=== PATIENT | female | born 1975 | race Caucasian/White ===

== ENCOUNTER 2016-06-29 14:25 | Outpatient (CLI) ==
[2014-09-14 21:39] VITALS: BMI 36.6
--- NOTE | 2016-06-29 15:00 | DI ---
EXAM: Right elbow three view HISTORY: Elbow pain COMPARISON: None FINDINGS: The bones are normal. The alignment is normal. No joint effusion. No focal soft tissue ab normality. IMPRESSION: Normal examination.
== END 2016-06-29 14:26 | disposition home or self-care (01) ==
LOC: RAD 14:25
PROVIDERS: ATTEND Physician Assistant
DX: M25.521 Pain in right elbow (principal)

== ENCOUNTER 2016-09-07 10:29 | Outpatient (CLI) ==
[2014-09-14 21:39] VITALS: BMI 36.6
[2016-09-07 11:00] LABS: BASOPHILS # (AUTO) 0.1 K/uL (0-0.2); BASOPHILS % (AUTO) 0.6 % (0.0-3.0); EOSINOPHILS # (AUTO) 0.2 K/ul (0.0-0.7); HEMATOCRIT 38.5 % (37.0-47.0); HEMOGLOBIN 13.3 g/dl (12.0-16.0); IMMATURE GRANULOCYTE % (AUTO) 0.3 % (0.0-5.0); LYMPHOCYTES # (AUTO) 2.9 K/uL (0.60-3.4); LYMPHOCYTES % (AUTO) 36.7 (10.0-50.0); MEAN CORPUSCULAR HEMOGLOBIN 30.9 pg (27.0-31.0); MEAN CORPUSCULAR HGB CONC 34.5 (31.8-35.4); MEAN CORPUSCULAR VOLUME 89.5 fl (81.0-99.0); MONOCYTES # (AUTO) 0.5 K/uL (0.4-2.0); MONOCYTES % (AUTO) 5.7 (0-10); NEUTROPHILS # (AUTO) 4.3 K/ul (2.0-6.9); NEUTROPHILS % (AUTO) 54.7; PLATELET COUNT 346 10^3/uL (140-440); WHITE BLOOD COUNT 7.91 K/ul (4.6-10.2)
[2016-09-07 11:26] LABS: ALANINE AMINOTRANSFERASE 22 U/L (12-78); ALBUMIN 3.5 g/dL (3.4-5.0); ALBUMIN/GLOBULIN RATIO 0.97; ALKALINE PHOSPHATASE 75 U/L (42-98); ANION GAP 14.4; ASPARTATE AMINO TRANSFERASE 19 U/L (15-37); BILIRUBIN,TOTAL 0.25 mg/dL (0.00-1.20); BLOOD UREA NITROGEN 14 mg/dL (7-18); CALCIUM 9.3 mg/dL (8.2-10.2); CARBON DIOXIDE 25 mmol/L (21-32); CHLORIDE 103 mmol/L (98-107); CHOL/HDL RATIO 3.5 (4.5-5.5); CHOLESTEROL 187 mg/dL (0-200); GLUCOSE 124 mg/dL (70-110); HDL CHOLESTEROL 53 mg/dL (35-80); POTASSIUM 4.4 mmol/L (3.5-5.10); SODIUM 138 mmol/L (136-145); TOTAL PROTEIN 7.1 g/dL (6.4-8.2); TRIGLYCERIDES 104 mg/dL (30-150); VLDL CHOLESTEROL 21 mg/dL (2-30)
== END 2016-09-07 10:30 | disposition home or self-care (01) ==
LOC: LAB 10:29
PROVIDERS: ATTEND Physician Assistant
DX: E11.9 Type 2 diabetes mellitus without complications (principal); R06.02 Shortness of breath; R07.89 Other chest pain
CPT/HCPCS: 36415; 80053; 80061; 82043; 83036; 84484; 85025

== ENCOUNTER 2016-09-10 06:35 | Outpatient (CLI) ==
[2014-09-14 21:39] VITALS: BMI 36.6
--- NOTE | 2016-09-10 12:42 | ECHO2D ---
Date of Exam: 09/10/16 Ordering Physician: Micaela ORTEGA [facility] Reason for Echo: SOB, CHEST TIGHTNESS, PRESSURE M-Mode Normal Adult Results LV Dimensions Normal Adult Results AoV Opening excursions >1.6 >1.6 LVEDD-base- 3.5-5.8 4.1 Ao root dimensions 2.0-3.7 2.6 LVESD-base- 3.1-4.6 L. Atrium dimensions 1.9-3.8 3.6 Post. Wall thickness 0.8-1.1 1.1 IV septum (thickness) 0.7-1.2 1.1 Post. Wall excursion 0.72-1.3 NORMAL Septal motion NORMAL Systolic motion R. Ventricular cavity 1.5-2.0 NORMAL LVEF 60% 54% Paradoxical septal wall motion NORMAL 2-D : 2-D M Mode Echocardiogram was performed using apical four chamber and left parasternal long and short axis views. Mitral, tricuspid and aortic valves appear to be normal. Contractility of the left ventricle seems to be normal, so is the cavity size. Left atrial cavity size and aortic root appear to be normal. There is no pericardial effusion. There is no thrombus noted in the left ventricular or left aortic cavity. No mitral valve prolapse noted. M-MODE: MV: NORMAL AV: NORMAL TV: NORMAL PV: CHAMBER SIZE: NORMAL WALL MOTION: NORMAL PERICARDIUM: NORMAL INTERPRETATION: 1. NORMAL 2 "D" "M" MODE ECHO MTDD
== END 2016-09-10 06:36 | disposition home or self-care (01) ==
LOC: CAR 06:35
PROVIDERS: ATTEND Physician Assistant
DX: R07.89 Other chest pain (principal)

== ENCOUNTER 2016-09-13 06:32 | Outpatient (CLI) ==
[2014-09-14 21:39] VITALS: BMI 36.6
--- NOTE | 2016-09-13 14:02 | ECHOSTRESS ---
Date of Exam: 09/13/2016 Ordering Physician: DR. ORTEGA Reason for Echo: SHORTNESS OF BREATH, CHEST PRESSURE, CHEST TIGHTNESS, DIABETES MELLITUS, STRESS TEST= NO ISCHEMIA M-Mode Normal Adult Results LV Dimensions Normal Adult Results AoV Opening excursions >1.6 LVEDD-base- 3.5-5.8 Ao root dimensions 2.0-3.7 LVESD-base- 3.1-4.6 L. Atrium dimensions 1.9-3.8 Post. Wall thickness 0.8-1.1 IV septum (thickness) 0.7-1.2 Post. Wall excursion 0.72-1.3 Septal motion Systolic motion R. Ventricular cavity 1.5-2.0 LVEF 60% Paradoxical septal wall motion 2-D: NORMAL LEFT VENTRICULAR CONTRACTILITY RESTING AND POST EXERCISE M-MODE: MV: AV: TV: PV: CHAMBER SIZE: WALL MOTION: NORMAL LEFT VENTRICULAR CONTRACTILITY RESTING AND POST EXERCISE PERICARDIUM: INTERPRETATION: 1. NORMAL LEFT VENTRICULAR CONTRACTILITY RESTING AND POST EXERCISE MTDD
--- NOTE | 2016-09-13 14:20 | STRESSECHO ---
Date of Test: 09/13/2016 Reason for Exam: SHORTNESS OF BREATH, CHEST TIGHTNESS, CHEST PRESSURE, DIABETES MELLITUS Ordering Physician: DR. ORTGEA Current Medications: METFORMIN, PROZAC, VITAMIN D, DICLOFENAC SOD ER, PRO AIR Physical Findings: S1,S2, NO S3, NO MURMUR Resting EKG: SINUS RHYTHM NO ACUTE CHANGES Target Heart Rate: 151 / 178 STAGE MPH/GRADE HEART RATE BPM BLOOD PRESSURE mmhg RHYTHM S-T SEGMENT +/- UP DOWN SYMPTOMS,COMMENTS At Rest 80 128/82 SR X NONE 1 1.7/10% 132 138/80 SR X NONE 2 2.5/12% 146/70 SR X NONE 3 3.4/14% 4 4.2/16% 5 5.0/18% Immediately after 156 SR X SHORTNESS OF BREATH Durations of Exercise: 6 MINUTES AND 22 SECONDS Maximum Heart Rate Reached: 156 Reason for Termination: SHORTNESS OF BREATH Minutes Post Exercise: 3 HeartRate: 96 Blood Pressure: 140/80 INTERPRETATION: 1. NO ISCHEMIA BY ST- T WAVE 2. NO COMPLAINTS OF CHEST PAIN OR DISCOMFORT 3. NO ARRHYTHMIAS 4. BLOOD PRESSURE RESPONSE NORMAL 5. NORMAL LEFT VENTRICULAR CONTRACTILITY RESTING AND POST EXERCISE MTDD
== END 2016-09-13 06:33 | disposition home or self-care (01) ==
LOC: CAR 06:32
PROVIDERS: ATTEND Physician Assistant
DX: R07.89 Other chest pain (principal)

== ENCOUNTER 2017-03-16 18:03 | Emergency (ER) ==
[2017-03-16 18:09] VITALS: BP 138/83; TEMP 98.7; BMI 35.4
[2017-03-16] MEDS ORDERED: DILAUDID 2 MG/ML SYRINGE IM STA (18:18)
[2017-03-16] MEDS ORDERED: PHENERGAN 25 MG/ML VIAL IM STA (18:18)
[2017-03-16] MEDS ORDERED: TORADOL IM STA (18:18)
[2017-03-16 18:36] LABS: BASOPHILS # (AUTO) 0.1 K/uL (0-0.2); BASOPHILS % (AUTO) 0.5 % (0.0-3.0); EOSINOPHILS # (AUTO) 0.2 K/ul (0.0-0.7); EOSINOPHILS % (AUTO) 1.6 % (0.0-7.0); HEMATOCRIT 36.7 % (37.0-47.0); HEMOGLOBIN 12.9 g/dl (12.0-16.0); IMMATURE GRANULOCYTE % (AUTO) 0.2 % (0.0-5.0); LYMPHOCYTES # (AUTO) 3.1 K/uL (0.60-3.4); LYMPHOCYTES % (AUTO) 30.4 (10.0-50.0); MEAN CORPUSCULAR HEMOGLOBIN 31.2 pg (27.0-31.0); MEAN CORPUSCULAR HGB CONC 35.1 (31.8-35.4); MEAN CORPUSCULAR VOLUME 88.6 fl (81.0-99.0); MONOCYTES # (AUTO) 0.6 K/uL (0.4-2.0); MONOCYTES % (AUTO) 5.6 (0-10); NEUTROPHILS # (AUTO) 6.3 K/ul (2.0-6.9); NEUTROPHILS % (AUTO) 61.7; PLATELET COUNT 322 10^3/uL (140-440); RED BLOOD COUNT 4.14 10^6/ul (4.20-5.40); WHITE BLOOD COUNT 10.14 K/ul (4.6-10.2)
[2017-03-16 18:40] LABS: BILIRUBIN,URINE Negative (NEGATIVE); KETONES,URINE 1+ (NEGATIVE); LEUKOCYTE ESTERASE ,URINE Trace (NEGATIVE); NITRITE,URINE Negative (NEGATIVE); PH,URINE 5.5 (5-9); PROTEIN,URINE Negative (NEGATIVE); URINE, BLOOD Negative (NEGATIVE)
[2017-03-16 18:42] LABS: ADD URINE MICROSCOPIC YES
[2017-03-16 18:43] LABS: BACTERIA,URINE TRACE (NOT PRESENT)
--- NOTE | 2017-03-16 18:54 | CT ---
EXAM: CT head without contrast. HISTORY: Headache. History of migraines. PROCEDURE: Contiguous axial CT images of the head without contrast with coronal and sagittal reforma ts. FINDINGS: The ventricles and basal cisterns are normal in size and configuration. No evidence of m ass or midline shift. No intracranial hemorrhage or evidence of large vessel infarct. No extra-axia l fluid collection. There is minimal mucosal thickening in the paranasal sinuses. The mastoid air c ells are well-aerated. Impression: Negative CT of the head. Paranasal sinusitis.
[2017-03-16 18:55] LABS: ALBUMIN 3.4 g/dL (3.4-5.0); ALBUMIN/GLOBULIN RATIO 0.97; ANION GAP 14.9; BILIRUBIN,TOTAL 0.47 mg/dL (0.00-1.20); BUN/CREATININE RATIO 18.57; CALCIUM 9.2 mg/dL (8.2-10.2); CREATININE 0.7 mg/dL (0.60-1.30); POTASSIUM 3.9 mmol/L (3.5-5.10); TOTAL PROTEIN 6.9 g/dL (6.4-8.2)
--- NOTE | 2017-03-16 18:58 | ED.PDOC ---
General ED Provider: Dr. MARIANELA FITCH-ER Chief Complaint: Headache Stated Complaint: my head has been hurting for 4 days Time Seen by Physician: 18:05 Mode of Arrival: Walk-In Information Source: Patient Exam Limitations: No limitations Primary Care Provider: CHAUNCEY ORTEGA Nursing and Triage Documentation Reviewed and Agree: Yes Neurological Complaint Exam - Headache Complaint/Exam Onset: Gradual Duration: 4 days Symptoms Are: Still present Timing: Constant Worst Headache Ever: No Initial Severity: Mild Current Severity: Moderate Location: Diffuse Character: Reports: Dull, Throbbing, Pressure, Typical headache, Migraine Aggravating: Reports: Bright lights Associated Signs and Symptoms: Reports: Nausea. Denies: Dizziness, Seizure, Vomiting, Sinus pressure, Fever, Neck pain, Neck stiffness, Decreased LOC, Visual changes Related History: Reports: Similar episode Related Surgical History: Reports: None SAH Risk Factors: Reports: None Meningitis Risk Factors: Reports: None SDH Risk Factors: Reports: None Temporal Arteritis Risk Factors: Reports: Female, Normal Head CT Within Last 12 Months: No Fundoscopic Exam: Present: Normal Findings Papilledema Present: Yes Temporal Artery Tenderness: Present: None Sinus Tenderness: Present: None TMJ Tenderness: Present: None Glascow Coma Scale (see protocol): 15 Meningeal Signs Positive: No Pain on Passive Flexion-Positive Kernig's: No ROM Limited In: No Limitiations Focal Weakness: Present: None Focal Sensory Loss: Present: None Gait: Normal Nystagmus Present: No Gag Reflex Present: No [id number]: Normal Findings Romberg Test Positive: No Babinski Sign: Negative Right, Negative Left Heel to Toe Normal: Yes Differential Diagnoses: Migraine Review of Systems - Review Of Systems Constitutional: Reports: Chills, Weakness Eyes: Reports: No symptoms Ears, Nose, Mouth, Throat: Reports: No symptoms Respiratory: Reports: No symptoms Cardiac: Reports: No symptoms GI: Reports: Nausea : Reports: No symptoms Musculoskeletal: Reports: No symptoms Skin: Reports: No symptoms Neurological: Reports: Headache Endocrine: Reports: No symptoms Hematologic/Lymphatic: Reports: No symptoms, Swollen glands All Other Systems: Reviewed and Negative Past Medical History - Past Medical History Previously Healthy: Yes Endocrine: Reports: Unknown Cardiovascular: Reports: Unknown Respiratory: Reports: Unknown Hematological: Reports: Unknown Gastrointestinal: Reports: Unknown Genitourinary: Reports: Unknown Neuro/Psych: Reports: Unknown Musculoskeletal: Reports: Unknown Cancer: Reports: Unknown Last Menstrual Period: hysterectomy - Surgical History General Surgical History: Reports: Unknown - Family History Family History: Reports: Unknown - Social History Smoking Status: Former smoker Hx Substance Use: No Alcohol Screening: None Lives: With family Physical Exam - Physical Exam Appearance: Well-appearing, No pain distress, Well-nourished Pain Distress: Moderate Eyes: JOHAN ENT: Ears normal, Nose normal, Oropharynx normal Neck: Supple Respiratory: Airway patent, Breath sounds clear, Breath sounds equal, Respirations nonlabored Cardiovascular: RRR, Pulses normal, No rub, No murmur GI/: Soft, Nontender, No masses, Bowel sounds normal, No Organomegaly Musculoskeletal: Normal strength, ROM intact, No edema, No calf tenderness Skin: Warm Neurological: Sensation intact, Motor intact, Reflexes intact, Cranial nerves intact, Alert, Oriented Psychiatric: Affect appropriate, Mood appropriate Interpretation - Radiology Interpretation Radiology Interpretation By: Radiologist Radiology Results: Negative Exam Interpreted: CT Scan Re-Evaluation - Re-Evaluation Time of Re-Evaluation: 19:16 Status: Improved Vital Signs Stable: Yes Pain Level: 1 Appearance: NAD Lungs: Clear Skin: Warm and Dry Neuro: Alert and Oriented X3 CV: RRR Critical Care Note - Critical Care Note Total Time (mins): 0 Course - Course Hematology/Chemistry: 03/16/17 18:30 03/16/17 18:30 Orders, Labs, Meds: Lab Review 03/16/17 03/16/17 03/16/17 18:20 18:30 18:30 WBC 10.14 RBC 4.14 L Hgb 12.9 Hct 36.7 L MCV 88.6 MCH 31.2 H MCHC 35.1 RDW Coeff of Valentin 13.0 Plt Count 322 Immature Gran % (Auto) 0.2 Neut % (Auto) 61.7 Lymph % (Auto) 30.4 Calhoun % (Auto) 5.6 Eos % (Auto) 1.6 Baso % (Auto) 0.5 Immature Gran # (Auto) 0.0 Neut # 6.3 Lymph # 3.1 Calhoun # 0.6 Eos # 0.2 Baso # 0.1 Sodium 138 Potassium 3.9 Chloride 105 Carbon Dioxide 22 Anion Gap 14.9 BUN 13 Creatinine 0.70 Estimated GFR (MDRD) 91.00 BUN/Creatinine Ratio 18.57 Glucose 104 Lactic Acid Calcium 9.2 Total Bilirubin 0.47 AST 13 L ALT 18 Alkaline Phosphatase 64 Total Protein 6.9 Albumin 3.4 Globulin 3.5 Albumin/Globulin Ratio 0.97 Procalcitonin Urine Color Yellow Urine Clarity Clear Urine pH 5.5 Ur Specific Center >=1.030 Urine Protein Negative Urine Glucose (UA) Negative Urine Ketones 1+ Urine Blood Negative Urine Nitrite Negative Urine Bilirubin Negative Urine Urobilinogen 0.2 Ur Leukocyte Esterase Trace Urine Microscopic WBC 2-5 Ur Squamous Epith Cells 10-20 Urine Bacteria Trace Influenza A (Rapid) Influenza B (Rapid) 03/16/17 03/16/17 03/16/17 18:30 18:30 18:50 WBC RBC Hgb Hct MCV MCH MCHC RDW Coeff of Valentin Plt Count Immature Gran % (Auto) Neut % (Auto) Lymph % (Auto) Calhoun % (Auto) Eos % (Auto) Baso % (Auto) Immature Gran # (Auto) Neut # Lymph # Calhoun # Eos # Baso # Sodium Potassium Chloride Carbon Dioxide Anion Gap BUN Creatinine Estimated GFR (MDRD) BUN/Creatinine Ratio Glucose Lactic Acid 8.8 Calcium Total Bilirubin AST ALT Alkaline Phosphatase Total Protein Albumin Globulin Albumin/Globulin Ratio Procalcitonin < 0.05 Urine Color Urine Clarity Urine pH Ur Specific Center Urine Protein Urine Glucose (UA) Urine Ketones Urine Blood Urine Nitrite Urine Bilirubin Urine Urobilinogen Ur Leukocyte Esterase Urine Microscopic WBC Ur Squamous Epith Cells Urine Bacteria Influenza A (Rapid) Negative Influenza B (Rapid) Negative Orders Category Date Time Status BLOOD CULTURE Stat LAB 03/16/17 18:30 Received CBC W/ AUTO DIFF Stat LAB 03/16/17 18:30 Completed COMPREHENSIVE METABOLIC PANEL Stat LAB 03/16/17 18:30 Completed LACTIC ACID Stat LAB 03/16/17 18:30 Completed MOLECULAR GROUP A STREP Stat LAB 03/16/17 18:50 Results PROCALCITONIN Stat LAB 03/16/17 18:30 Completed RAPID FLU A/B Stat LAB 03/16/17 18:50 Completed STREP SCREEN Stat LAB 03/16/17 18:50 Results URINALYSIS C & S IF INDICATED Stat LAB 03/16/17 18:20 Completed Hydromorphone HCl/Pf [Dilaudid 2 mg/ml Syringe] MEDS 03/16/17 18:18 Discontinued 2 mg IM ONCE STA Ketorolac Tromethamine [Toradol] MEDS 03/16/17 18:18 Discontinued 60 mg IM ONCE STA Promethazine HCl [Phenergan 25 mg/ml Vial] MEDS 03/16/17 18:18 Discontinued 25 mg IM ONCE STA CT HEAD W/O CONTRAST Stat RADS 03/16/17 18:20 Completed Medications Discontinued Medications Generic Name Dose Route Start Last Admin Trade Name Timur PRN Reason Stop Dose Admin Hydromorphone HCl 2 mg 03/16/17 18:18 03/16/17 18:48 Dilaudid 2 Mg/Ml Syringe IM 03/16/17 18:19 2 mg ONCE STA Administration Ketorolac Tromethamine 60 mg 03/16/17 18:18 03/16/17 18:51 Toradol IM 03/16/17 18:19 60 mg ONCE STA Administration Promethazine HCl 25 mg 03/16/17 18:18 03/16/17 18:48 Phenergan 25 Mg/Ml Vial IM 03/16/17 18:19 25 mg ONCE STA Administration Vital Signs: Temp Pulse Resp BP Pulse Ox 03/16/17 18:03 98.7 F 100 H 20 138/83 96 Departure - Departure Time of Disposition: 19:16 Disposition: HOME SELF-CARE Discharge Problem: Migraine headache Qualifiers: Migraine type: without aura Status migrainosus presence: without status migrainosus Intractability: not intractable Qualified Code(s): G43.009 - Migraine without aura, not intractable, without status migrainosus Rhinitis Qualifiers: Rhinitis type: unspecified Chronicity: acute Qualified Code(s): J00 - Acute nasopharyngitis [common cold] Instructions: Migraine Headache (ED) Condition: Good Pt referred to PMD for follow-up: Yes Additional Instructions: augmentin 875mg bid x 10 days--flonase nasal srpay one puff each nostril bid--f/ u with pcp Allergies/Adverse Reactions: Allergies doxycycline Adverse Reaction (Verified 03/16/17 18:10) metronidazole [From Flagyl] Adverse Reaction (Verified 03/16/17 18:10) Metronidazole HCl [From Flagyl] Adverse Reaction (Verified 03/16/17 18:10) varenicline tartrate [From Chantix] Adverse Reaction (Verified 03/16/17 18:10) Home Medications: Ambulatory Orders Metformin HCl [Glucophage] 500 mg PO TID 11/10/13 Diclofenac Sodium [Voltaren-Xr] 100 mg PO BEDTIME 03/16/17 Fluoxetine HCl [Prozac] 60 mg PO BEDTIME 03/16/17 Disposition Discussed With: Patient, Family
[2017-03-16 19:12] LABS: FLU INTERNAL QC INTERNAL QC VALID; RAPID FLU A NEGATIVE (NEGATIVE); RAPID FLU B NEGATIVE (NEGATIVE)
== END 2017-03-16 19:30 | disposition home or self-care (01) ==
LOC: ED 18:03
DX: G43.009 Migraine without aura, not intractable, without status migrainosus (principal); J00 Acute nasopharyngitis [common cold]
CPT/HCPCS: 36415; 80053; 81001; 83605; 84145; 85025; 87040; 87070; 87186; 87651; 87804; 87880; 96372; 99283

== ENCOUNTER 2017-10-07 19:50 | Emergency (ER) ==
[2017-10-07 19:54] VITALS: BP 127/87; TEMP 98.5; BMI 37.6
[2017-10-07] MEDS ORDERED: GI COCKTAIL PO STA (20:45)
[2017-10-07] MEDS ORDERED: ZOFRAN 4 MG/2 ML IM STA (20:45)
[2017-10-07] MEDS ORDERED: DEMEROL 25 MG/ML VIAL IM STA (20:45)
--- NOTE | 2017-10-07 20:49 | ED.PDOC ---
General ED Provider: Dr. WAYNE ELIZABETH Chief Complaint: Abdominal Pain Stated Complaint: Hurting in the upper abdomen, for 2-3 days, vomiting, nausea. no fever or chills. Time Seen by Physician: 20:47 Mode of Arrival: Walk-In Information Source: Patient Primary Care Provider: CHAUNCEY ORTEGA Nursing and Triage Documentation Reviewed and Agree: Yes Reviewed sepsis parameters & appropriate labs ordered?: No System Inflammatory Response Syndrome: Not Applicable Sepsis Protocol: For patient's 13 years and over: Temp is 96.8 and below OR 101 and greater Pulse >90 BPM Resp >20/minute Acutely Altered Mental Status Are patient's symptoms suggestive of a new infection, such as: -Pneumonia -Skin, Soft Tissue -Endocarditis -UTI -Bone, Joint Infection -Implantable Device -Acute Abdominal Infection -Wound Infection -Meningitis -Blood Stream Catheter Infection -Unknown GI Complaint Exam - Abdominal Pain Complaint/Exam Onset: Gradual Symptoms Are: Still present Timing: Constant Initial Severity: Moderate Current Severity: Severe Location of Pain: Epigastric Radiates To: Reports: Back, Flank Character: Reports: Dull, Aching, Throbbing Aggravating: Reports: None Alleviating: Reports: None Associated Signs and Symptoms: Reports: Nausea, Vomiting. Denies: Diaphoresis, Fever, Cough, Chest pain, Dizziness, Back pain, Constipation, Blood in stool, Dysuria, Urinary frequency, Decreased urine output, Decreased appetite, Vaginal bleeding, Vaginal discharge, Diarrhea, Sore throat, Decreased activity AAA Risk Factors: Reports: None Cardiac Risk Factors: Reports: None Ectopic Risk Factors: Reports: None Ovarian Torsion Risk Factors: Reports: None Surgical Obstruction Risk Factors: Reports: None Related Surgical History: Reports: None Patient Rh Status: Unknown Abdominal Findings: Present: None Differential Diagnoses: Gastroenteritis, Pancreatitis, PUD Review of Systems - Review Of Systems Constitutional: Reports: Malaise, Weakness Eyes: Reports: No symptoms Ears, Nose, Mouth, Throat: Reports: No symptoms Respiratory: Reports: No symptoms Cardiac: Reports: No symptoms GI: Reports: Abdominal pain, Nausea, Vomiting : Reports: No symptoms Musculoskeletal: Reports: No symptoms Skin: Reports: No symptoms Neurological: Reports: No symptoms Endocrine: Reports: No symptoms Hematologic/Lymphatic: Reports: No symptoms All Other Systems: Reviewed and Negative Past Medical History - Past Medical History Previously Healthy: Yes Endocrine: Reports: DM 2 Cardiovascular: Reports: Unknown Respiratory: Reports: Unknown Hematological: Reports: Unknown Gastrointestinal: Reports: Unknown Genitourinary: Reports: Unknown Neuro/Psych: Reports: Depression Musculoskeletal: Reports: Unknown Cancer: Reports: Unknown Last Menstrual Period: n/a - Surgical History General Surgical History: Reports: Appendectomy, Cholecystectomy, Tonsillectomy - Family History Family History: Reports: Unknown - Social History Smoking Status: Former smoker Hx Substance Use: No Alcohol Screening: None Physical Exam - Physical Exam Appearance: Ill-appearing, Well-nourished Pain Distress: Moderate Eyes: JOHAN, EOMI, Conjunctiva clear ENT: Ears normal, Nose normal, Oropharynx normal Respiratory: Airway patent, Breath sounds clear, Breath sounds equal, Respirations nonlabored Cardiovascular: RRR, Pulses normal, No rub, No murmur GI/: Soft, No masses, Bowel sounds normal, No Organomegaly, Tender Musculoskeletal: Normal strength, ROM intact, No edema, No calf tenderness Skin: Warm, Dry, Normal color Neurological: Sensation intact, Motor intact, Reflexes intact, Cranial nerves intact, Alert, Oriented Psychiatric: Affect appropriate, Mood appropriate Interpretation - Radiology Interpretation Radiology Interpretation By: Radiologist Radiology Results: Negative Exam Interpreted: CT Scan Critical Care Note - Critical Care Note Total Time (mins): 30 Course - Course Hematology/Chemistry: 10/07/17 21:00 10/07/17 21:00 Orders, Labs, Meds: Lab Review 10/07/17 10/07/17 21:00 21:00 WBC 11.89 H RBC 4.14 L Hgb 12.8 Hct 37.5 MCV 90.6 MCH 30.9 MCHC 34.1 RDW Coeff of Valentin 12.7 Plt Count 355 Immature Gran % (Auto) 0.3 Neut % (Auto) 58.4 Lymph % (Auto) 34.0 Jennings % (Auto) 5.1 Eos % (Auto) 1.7 Baso % (Auto) 0.5 Immature Gran # (Auto) 0.0 Neut # (Auto) 7.0 H Lymph # (Auto) 4.0 H Jennings # (Auto) 0.6 Eos # (Auto) 0.2 Baso # (Auto) 0.1 Sodium 139 Potassium 4.0 Chloride 104 Carbon Dioxide 24 Anion Gap 15.0 BUN 14 Creatinine 1.01 Estimated GFR (MDRD) 60.00 BUN/Creatinine Ratio 13.86 Glucose 114 H Calcium 9.3 Total Bilirubin 0.2 AST 17 ALT 24 Alkaline Phosphatase 81 Total Protein 7.0 Albumin 3.4 Globulin 3.6 Albumin/Globulin Ratio 0.94 Amylase 45 Lipase 58 Orders Category Date Time Status AMYLASE Stat LAB 10/07/17 21:00 Completed CBC W/ AUTO DIFF Stat LAB 10/07/17 21:00 Completed COMPREHENSIVE METABOLIC PANEL Stat LAB 10/07/17 21:00 Completed LIPASE Stat LAB 10/07/17 21:00 Completed Mag-Al Plus//Lidocaine [Gi Cocktail] MEDS 10/07/17 20:45 Discontinued 30 ml PO ONCE STA Meperidine HCl/Pf [Demerol 25 mg/ml Vial] MEDS 10/07/17 20:45 Discontinued 25 mg IM ONCE STA Ondansetron HCl/Pf [Zofran 4 mg/2 ml] MEDS 10/07/17 20:45 Discontinued 4 mg IM ONCE STA CT ABDOMEN/PELVIS WO CONTRAST Stat RADS 10/07/17 20:45 Completed Medications Discontinued Medications Generic Name Dose Route Start Last Admin Trade Name Freq PRN Reason Stop Dose Admin Al Hydroxide/Mg Hydroxide 30 ml 10/07/17 20:45 10/07/17 21:06 Gi Cocktail PO 10/07/17 20:46 30 ml ONCE STA Administration Meperidine HCl 25 mg 10/07/17 20:45 10/07/17 21:06 Demerol 25 Mg/Ml Vial IM 10/07/17 20:46 25 mg ONCE STA Administration Ondansetron HCl 4 mg 10/07/17 20:45 10/07/17 21:06 Zofran 4 Mg/2 Ml IM 10/07/17 20:46 4 mg ONCE STA Administration Vital Signs: Temp Pulse Resp BP Pulse Ox 10/07/17 19:51 98.5 F 87 20 127/87 97 Departure - Departure Time of Disposition: 21:52 Disposition: HOME SELF-CARE Discharge Problem: Gastroenteritis Instructions: Gastroenteritis (ED) Condition: Stable Pt referred to PMD for follow-up: Yes IPMP verified?: No Additional Instructions: soft diet for 3-4 days Increase hydration if not better in 2 days needs to have f/u with [facility] Prescriptions: Ondansetron [Zofran Odt] 4 mg PO Q8H #20 tab.rapdis Allergies/Adverse Reactions: Allergies doxycycline Adverse Reaction (Verified 10/07/17 19:54) metronidazole [From Flagyl] Adverse Reaction (Verified 10/07/17 19:54) Metronidazole HCl [From Flagyl] Adverse Reaction (Verified 10/07/17 19:54) varenicline tartrate [From Chantix] Adverse Reaction (Verified 10/07/17 19:54) Home Medications: Ambulatory Orders Metformin HCl [Glucophage] 500 mg PO TID 11/10/13 Diclofenac Sodium [Voltaren-Xr] 100 mg PO BEDTIME 03/16/17 Fluoxetine HCl [Prozac] 80 mg PO BEDTIME 03/16/17 Ondansetron [Zofran Odt] 4 mg PO Q8H #20 tab.rapdis 10/07/17 Disposition Discussed With: Patient, Family
--- NOTE | 2017-10-07 21:26 | CT ---
EXAM: Noncontrast CT of the abdomen and pelvis HISTORY: Epigastric pain COMPARISON: 06/04/2009 TECHNIQUE: Noncontrast CT of the abdomen and pelvis FINDINGS: Noncontrast technique limits evaluation of abdominal viscera. The unenhanced liver, spleen, adrenals, kidneys and pancreas appear unremarkable. The gallbladder has been removed. There is no evidence of urolithiasis. Presumed ingested material is seen within the stomach. No abnormal small bowel dilation is seen. Th e colon is within normal limits. The appendix appears to be surgically absent. No free air or free fluid is seen. There is transitional anatomy lumbosacral spine. There is lower l umbar spine degenerative disc disease and facet arthropathy. IMPRESSION: No acute intra-abdominal findings. Status post cholecystectomy and appendectomy. Lower lumbar disc disease and facet arthropathy.
== END 2017-10-07 22:06 | disposition home or self-care (01) ==
LOC: ED 19:50
DX: K52.9 Noninfective gastroenteritis and colitis, unspecified (principal); E11.9 Type 2 diabetes mellitus without complications
CPT/HCPCS: 36415; 80053; 82150; 83690; 85025; 96372; 99283

== ENCOUNTER 2018-02-16 05:15 | Emergency (ER) ==
[2018-02-16 05:27] VITALS: BP 114/80; TEMP 97.6; BMI 36.3
[2018-02-16] MEDS ORDERED: IMITREX SUBCUT STA (05:50)
[2018-02-16] MEDS ORDERED: PHENERGAN 25 MG/ML VIAL IM STA (05:50)
--- NOTE | 2018-02-16 05:55 | ED.PDOC ---
General ED Provider: Dr. ULICES TABOR Chief Complaint: Headache Stated Complaint: Patient is a 42 year old female who comes to the ER with 2 day history of migrane headaches that she describe sas pressrure above the left eye. with photo and phonophobia. Has tried Tylenol multiple times yesterday and excedrene migranes prior to arrival. She has vomited twice tonight and still feels nauseated Time Seen by Physician: 05:51 Mode of Arrival: Walk-In Information Source: Patient Exam Limitations: No limitations Primary Care Provider: CHAUNCEY ORTEGA Nursing and Triage Documentation Reviewed and Agree: Yes Does patient meet sepsis criteria?: No System Inflammatory Response Syndrome: Not Applicable Sepsis Protocol: For patient's 13 years and over: Temp is 96.8 and below OR 101 and greater Pulse >90 BPM Resp >20/minute Acutely Altered Mental Status Are patient's symptoms suggestive of a new infection, such as: -Pneumonia -Skin, Soft Tissue -Endocarditis -UTI -Bone, Joint Infection -Implantable Device -Acute Abdominal Infection -Wound Infection -Meningitis -Blood Stream Catheter Infection -Unknown Neurological Complaint Exam - Headache Complaint/Exam Onset: Gradual Duration: 2 days Symptoms Are: Still present Timing: Constant Episodes Lasting: Days Worst Headache Ever: No Initial Severity: Moderate Current Severity: Severe Location: Left, Frontal Character: Reports: Pressure Aggravating: Reports: Bright lights (and Noise ) Alleviating: Reports: None Associated Signs and Symptoms: Reports: Nausea, Vomiting. Denies: Dizziness, Seizure, Sinus pressure, Fever, Neck pain, Neck stiffness, Decreased LOC, Visual changes Related History: Reports: Similar episode Related Surgical History: Reports: None SAH Risk Factors: Reports: None Meningitis Risk Factors: Reports: None Temporal Arteritis Risk Factors: Reports: None Normal Head CT Within Last 12 Months: Yes Fundoscopic Exam: Present: Normal Findings Papilledema Present: No Sinus Tenderness: Present: None TMJ Tenderness: Present: None Glascow Coma Scale (see protocol): 15 Meningeal Signs Positive: No Pain on Passive Flexion-Positive Kernig's: No ROM Limited In: No Limitiations Focal Weakness: Present: None Focal Sensory Loss: Present: None Gait: Normal Nystagmus Present: No Gag Reflex Present: No Bhhsct-fr-[id number]: Normal Findings Romberg Test Positive: No Babinski Sign: Negative Right, Negative Left Heel to Toe Normal: Yes Differential Diagnoses: Migraine, Tension Headache Review of Systems - Review Of Systems Constitutional: Reports: No symptoms Eyes: Reports: Photophobia Ears, Nose, Mouth, Throat: Reports: No symptoms (but has phonophobia ) Respiratory: Reports: No symptoms Cardiac: Reports: No symptoms GI: Reports: Nausea, Poor appetite, Vomiting : Reports: No symptoms Musculoskeletal: Reports: No symptoms Skin: Reports: No symptoms Neurological: Reports: Anxiety, Headache Endocrine: Reports: No symptoms Hematologic/Lymphatic: Reports: No symptoms All Other Systems: Reviewed and Negative Past Medical History - Past Medical History Previously Healthy: Yes Endocrine: Reports: DM 2 Cardiovascular: Reports: None Respiratory: Reports: None Hematological: Reports: None Gastrointestinal: Reports: None Genitourinary: Reports: None Neuro/Psych: Reports: Migraine, Depression Musculoskeletal: Reports: None Cancer: Reports: None Last Menstrual Period: PT HAS HAD A HYSTERECTOMY - Surgical History General Surgical History: Reports: Appendectomy, Cholecystectomy, Tonsillectomy - Family History Family History: Reports: Unknown - Social History Smoking Status: Former smoker Hx Substance Use: No Alcohol Screening: None - Immunizations Tetanus Shot up to Date: (UNKNOWN) Physical Exam - Physical Exam Appearance: Ill-appearing, Obese Ill-appearing: Mild Pain Distress: Severe Eyes: JOHAN, EOMI, Conjunctiva clear ENT: Ears normal, Nose normal, Oropharynx normal Neck: Supple Respiratory: Airway patent, Breath sounds clear, Breath sounds equal, Respirations nonlabored Cardiovascular: RRR, Pulses normal, No rub, No murmur Musculoskeletal: Normal strength, ROM intact, No edema, No calf tenderness Skin: Warm Neurological: Sensation intact, Motor intact, Reflexes intact, Cranial nerves intact, Alert, Oriented Psychiatric: Anxious Critical Care Note - Critical Care Note Total Time (mins): 0 Course - Course Orders, Labs, Meds: Orders Category Date Time Status Promethazine HCl [Phenergan 25 mg/ml Vial] MEDS 02/16/18 05:50 Stat 25 mg IM ONCE STA Sumatriptan Succinate [Imitrex] MEDS 02/16/18 05:50 Stat 6 mg SUBCUT ONCE STA Medications Discontinued Medications Generic Name Dose Route Start Last Admin Trade Name Freq PRN Reason Stop Dose Admin Promethazine HCl 25 mg 02/16/18 05:50 Phenergan 25 Mg/Ml Vial IM 02/16/18 05:51 ONCE STA Sumatriptan Succinate 6 mg 02/16/18 05:50 Imitrex SUBCUT 02/16/18 05:51 ONCE STA Vital Signs: Temp Pulse Resp BP Pulse Ox 02/16/18 05:16 97.6 F 79 18 114/80 95 Departure - Departure Time of Disposition: 06:30 Disposition: HOME SELF-CARE Discharge Problem: Headache Headache, classical migraine Qualifiers: Status migrainosus presence: without status migrainosus Intractability: not intractable Qualified Code(s): G43.109 - Migraine with aura, not intractable, without status migrainosus Instructions: Migraine Headache (ED) Condition: Stable Pt referred to PMD for follow-up: Yes IPMP verified?: No Additional Instructions: Take Medications as prescribed Follow up with PCP in 3 days Prescriptions: Butalb/Acetaminophen/Caffeine [Fioricet] 1 each PO Q6-8H PRN #30 tablet PRN Reason: Migraine Headaches Ondansetron HCl [Zofran Tab] 4 mg PO Q8H PRN #20 tablet PRN Reason: Nausea / Vomiting Allergies/Adverse Reactions: Allergies doxycycline Adverse Reaction (Verified 02/16/18 05:25) metronidazole [From Flagyl] Adverse Reaction (Verified 02/16/18 05:25) Metronidazole HCl [From Flagyl] Adverse Reaction (Verified 02/16/18 05:25) varenicline tartrate [From Chantix] Adverse Reaction (Verified 02/16/18 05:25) Home Medications: Ambulatory Orders Metformin HCl [Glucophage] 500 mg PO TID 11/10/13 Diclofenac Sodium [Voltaren-Xr] 100 mg PO BEDTIME 03/16/17 Fluoxetine HCl [Prozac] 80 mg PO BEDTIME 03/16/17 Butalb/Acetaminophen/Caffeine [Fioricet] 1 each PO Q6-8H PRN #30 tablet Ondansetron HCl [Zofran Tab] 4 mg PO Q8H PRN #20 tablet 02/16/18 Disposition Discussed With: Patient, Family
== END 2018-02-16 06:39 | disposition home or self-care (01) ==
LOC: ED 05:15
DX: G43.109 Migraine with aura, not intractable, without status migrainosus (principal)
CPT/HCPCS: 96372; 99283

== ENCOUNTER 2018-08-10 15:53 | Outpatient (CLI) ==
[2018-05-19 20:44] VITALS: BMI 37.6
--- NOTE | 2018-08-10 17:01 | DI ---
EXAM: Three views of the left elbow. History: Left elbow pain. Findings: No acute fracture or dislocation. No abnormal calcifications or radiopaque foreign bodies . Joint spaces are preserved. No joint effusion. Impression: No acute osseous abnormality
== END 2018-08-10 15:54 | disposition home or self-care (01) ==
LOC: RAD 15:53
PROVIDERS: ATTEND Nurse Practitioner
DX: M25.522 Pain in left elbow (principal)

== ENCOUNTER 2018-09-04 14:58 | Outpatient (CLI) ==
[2018-05-19 20:44] VITALS: BMI 37.6
--- NOTE | 2018-09-05 09:49 | MRI ---
EXAM: MRI left elbow without contrast. HISTORY: No known injury. Pain. Swelling. Numbness. No left elbow surgery reported. TECHNIQUE: Using a local extremity coil on a high field strength magnet multiplanar multisequence MR I was attempted of the left elbow without intravenous or intra-articular gadolinium contrast. Examin ation of limited diagnostic quality secondary to decreased [id number]/resolution as well as zakia on degradation. COMPARISON: Three-view plain film examination left elbow 08/10/2018. FINDINGS: The alignment of the left elbow shows no dislocation or joint subluxations. Bone marrow s ignal intensity of the left elbow shows no acute fracture, stress fracture or bone erosions. Some ea rly / mild osteoarthrosis proximal left radioulnar joint as well as radial capitellar articulation a nd ulnar trochlear articulation. Physiologic amount fluid left elbow joint. No large osteochondral loose bodies identified. Posterior the distal triceps tendon intact. No olecranon bursitis. Within the anterior compartment distal brachialis and biceps brachii tendon fibers intact. Within the lateral compartment the radial collateral ligament as well as lateral ulnar collateral lig ament and annular ligament intact. There is lateral epicondylitis with thickening and increased sign al intensity over the common extensor tendon origin with 7 mm partial thickness tear. Within the medial compartment the ulnar collateral ligament intact. Origin of the flexor pronator wa d intact and normal signal intensity. The ulnar nerve located in expected position within the cubita l tunnel and within normal limits signal intensity and morphology. IMPRESSION: Lateral epicondylitis with superimposed 7 mm partial thickness tear. Intact medial and lateral compartment ligaments otherwise. No acute fracture or bone erosions. Early / mild osteoarthrosis. No left elbow effusion or surround ing bursitis.
== END 2018-09-04 14:59 | disposition home or self-care (01) ==
LOC: RAD 14:58
PROVIDERS: ATTEND Nurse Practitioner
DX: M25.522 Pain in left elbow (principal)